=== PATIENT | male | born 1960 | race Caucasian/White ===

== ENCOUNTER 2023-09-21 17:47 | Emergency (ER) | payer MEDICAID, SELFPAY ==
[2023-09-21 17:53] VITALS: BP 166/83; PULSE 68; RESP 18; TEMP 37.2; O2SAT 96; BMI 19.8
--- NOTE | 2023-09-21 18:15 | CT_ITS ---
Patient: HERNANDEZ OWENS Facility:?[facility] Patient ID:?[id number] Site Patient ID:?[id number]. Site :?[id number] Study:?CT-Abdomen/Pelvis W/O-09/21/2023 6:43:11 PM Ordering Physician:CAROL Final Report: INDICATION: Right flank pain TECHNIQUE: Multiplanar CT examination of the abdomen and pelvis was performed without the use of intravenous contrast. COMPARISON: CT abdomen pelvis 02/18/2021. FINDINGS: Limited evaluation of the soft tissue organs without the use of intravenous contrast. Lower chest: Diffuse interlobular septal thickening. Mild cardiomegaly. Mild pulmonary vascular congestion. Small pleural effusions. No definite focal consolidation. Coronary arterial calcifications. No definite pneumothorax. Liver: Unremarkable. Gallbladder: Unremarkable. Biliary: Unremarkable. Pancreas: Within normal limits. Spleen: Tiny punctate calcified granulomas. Adrenal glands: Unremarkable. Renal/ureters/bladder: Markedly atrophic kidneys. Exophytic hypodensities, poorly characterized without the use of intravenous contrast, possibly simple renal cysts. No obstructive uropathy. No hydronephrosis or obstructive urinary calculi. The ureters appear unremarkable. The bladder is mildly thick walled diffusely. Pelvis: Unremarkable. Gastrointestinal: No bowel wall thickening or bowel obstruction. Normal appendix. Severe colonic diverticulosis without pericolonic fat stranding to suggest acute diverticulitis. Severe colonic stool burden. Vasculature: No aortic aneurysm. Severe atherosclerotic calcifications of the abdominal aorta and its branches. There is mild fusiform aneurysmal dilatation of the infrarenal abdominal aorta just proximal to the iliac bifurcation, measuring 2.3 cm. No significant atherosclerotic calcifications. Lymph nodes: No pathologic lymphadenopathy by size criteria. Peritoneum: No free fluid or pneumoperitoneum. No drainable fluid collections. Abdominal wall/soft tissues: Small right inguinal hernia containing several loops of nonobstructed small bowel. Bones: Chronic bilateral pars defects of L5 resulting in 11 mm of grade 1 anterolisthesis of L5 on S1 severe degenerative changes of the thoracolumbar spine. No acute osseous abnormalities. IMPRESSION: 1. Limited evaluation of the soft tissue organs without the use of intravenous contrast. 2. Mild cardiomegaly with mild pulmonary vascular congestion, interstitial edema and small pleural effusions bilaterally, which can be seen with decompensated congestive heart failure. 3. Dense coronary arterial calcifications, correlation with ASCVD evaluation is advised. 4. Small right inguinal hernia containing several loops of nonobstructed small bowel. No pneumatosis intestinalis or portal venous gas. 4. Markedly atrophic kidneys in keeping with patient`s given history of end- stage renal disease. 6. Severe colonic diverticulosis without evidence of acute diverticulitis. 7. Otherwise, no acute abdominopelvic pathology. Please note that all CT scans at this facility use dose modulation, iterative reconstruction, and/or weight-based dosing when appropriate to reduce radiation dose to as low as reasonably achievable. Dictated by Octavio Kenney MD @ 09/21/2023 7:45:33 PM Signed by:?Octavio Kenney MD @09/21/2023 7:45:33 PM (Electronic Signature)
--- NOTE | 2023-09-21 18:36 | ED_ITS ---
HPI - Fall General Date Seen: 09/21/23 Chief Complaint: Fall/Minor Trauma Stated Complaint: Fell on concrete, weak Time Seen by Provider: 09/21/23 17:50 Source: patient and seaming inspector Mode of arrival: ambulatory Limitations: language barrier History of Present Illness HPI Narrative: Patient is a 63-year-old male presenting to the emergency department for right flank pain. He is [place]an-speaking and seaming inspector was used. He has history of end-stage renal disease and produces some urine. Patient states he had dialysis today and after dialysis he is feeling dizzy and weak. He states this always occurs after dialysis and today it and seeing a different than normal. This is a symptoms though occurred while he was walking up steps into his house and he fell backwards onto the cement hitting his right flank. This happened about 10:30. The pain has persisted throughout the day so he was concerned and came to get it evaluated. Has not taking anything for pain. He states he no longer feels lightheaded or dizzy. Denies chest pain, shortness of breath, weakness, numbness, abdominal pain, fatigue. No history of kidney stones. No other concerns noted at this time. Related Data Home Medications Medication Instructions Recorded Confirmed amlodipine 5 mg tablet 5 mg PO BID 09/21/23 09/21/23 hydralazine 100 mg tablet 100 mg PO 3XD 09/21/23 09/21/23 Allergies Allergy/AdvReac Type Severity Reaction Status Date / Time No Known Drug Allergies Allergy Verified 09/21/23 18:00 Review of Systems Status of ROS: Reports: 10 or more systems reviewed and unremarkable except as noted in History and below PFSH PFSH Social History Smoking Status: Never smoker How often do you have a drink containing alcohol: never AUDIT-C Alcohol total score: 0 Non-prescribed substance use: denies use service: No Exam Narrative: Exam Narrative: Const: Well-nourished, Well-developed, in mild distress Eyes: PERRL, no conjunctival injection, and symmetrical lids HENT: Atraumatic external nose and ears. Moist mucous membranes. Neck: Symmetric, trachea midline, No thyromegaly. CVS: RRR, No murmurs or gallops. Peripheral pulses 2+ and equal in all extremities RESP: Unlabored respiratory effort. Clear to auscultation bilaterally. GI: Nontender/Nondistended, No rebound or guarding. MSK:Extremities w/o deformity, Normal Active ROM, right flank tenderness, no midline spine tenderness Skin: Warm, Dry. No rashes or lesions. Neuro: Normal Muscle tone, No focal neurological deficits. Psych: Awake, Alert, & Oriented x3. Appropriate mood and affect. Const: Vital Signs, click to edit/add: Vital Signs - 24 hr 09/21/23 17:53 09/21/23 20:32 Temperature 98.9 F Pulse Rate [Right Pulse Oximeter] 68 74 Respiratory Rate 18 18 Blood Pressure [Ri t Upper Arm] 166/83 H 168/86 H Pulse Oximetry 96 93 Oxygen Delivery Me thod Room Air Room Air Course Vital Signs Vital signs: Initial Vital Signs Temperature 98.9 F 09/21/23 17:53 Temperature Source Temporal Artery Scan 09/21/23 17:53 Pulse Rate 68 09/21/23 17:53 Pulse Rhythm Regular 09/21/23 17:53 Respiratory Rate 18 09/21/23 17:53 Blood Pressure 166/83 H 09/21/23 17:53 Blood Pressure Mean 110 H 09/21/23 17:53 Blood Pressure Position Sitting 09/21/23 17:53 Pulse Oximetry 96 09/21/23 17:53 Oxygen Delivery Method Room Air 09/21/23 17:53 Vital Signs Temperature 98.9 F 09/21/23 17:53 Pulse Rate 68 09/21/23 17:53 Respiratory Rate 18 09/21/23 17:53 Blood Pressure 166/83 H 09/21/23 17:53 Pulse Oximetry 96 09/21/23 17:53 Oxygen Delivery Method Room Air 09/21/23 17:53 Temperature 98.9 F 09/21/23 17:53 Pulse Rate 74 09/21/23 20:32 Respiratory Rate 18 09/21/23 20:32 Blood Pressure 168/86 H 09/21/23 20:32 Pulse Oximetry 93 09/21/23 20:32 Oxygen Delivery Method Room Air 09/21/23 20:32 Medications Administered Medications: Discontinued Medications Generic Name Dose Route Start Last Admin Trade Name Freq PRN Reason Stop Dose Admin Oxycodone HCl 5 mg 09/21/23 18:14 09/21/23 18:40 Oxycodone 5 Mg Tablet PO 09/21/23 18:15 5 mg ONCE ONE Administration MDM - Fall MDM Narrative Medical decision making narrative: Patient is a 63-year-old male presenting for right flank pain. Concern is occurred after fall seems most likely to be musculoskeletal in nature. I will do a CT scan to make sure there is no signs of kidney stone and to make sure there is no signs of bleeding. He is on dialysis but still produces urine so I am hesitant to use IV contrast at this time. Considering my concern for peritoneal or retroperitoneal bleeding is low is otherwise normal vital signs I am okay doing this without contrast. He has no midline tenderness and dedicated lumbar spine CT is not necessary. Since he did have lightheadedness and dizziness I will order an EKG, troponin, CBC, CMP. EKG shows no concerning abnormalities. Hemoglobin is 10.7 and I do not have previous hemoglobin to compare to but this seems unlikely to be the cause of his symptoms considering he always gets the lightheadedness and dizziness after dialysis. CMP shows a creatinine of 5.2 and a sodium of 131 no obvious concerning findings. Troponin did come back at 0.10 but he is a dialysis patient and this could be chronically elevated in him. We will recheck it. CT scan returned showing no concerning abnormalities that would be the cause of his flank pain. Repeat troponin was 0.11. This is functions same as the 0.10. of care troponin that was done earlier. This is likely a chronically elevated troponin from his end-stage renal disease. He is not having any symptoms right now and I do not believe he is having ACS. Patient be discharged home. Given oxycodone through [facility]. He agrees with this plan. Lab Data Labs: Lab Results 09/21/23 Range/Units 18:53 WBC 6.50 (4.50-11.00) K/uL RBC 3.49 L (4.30-5.90) m/uL Hgb 10.7 L (13.5-17.5) gm/dL Hct 33.8 L (37.0-53.0) % MCV 97 (80-100) fL MCH 31 (26-34) pg MCHC 32 (32-36) gm/dL RDW Coeff of [place] 13.8 (11.5-15.5) % Plt Count 133 L (140-440) K/uL Neut % (Auto) 79.8 H (42.0-72.0) % Lymph % (Auto) 8.8 L (20-44) % Clark % (Auto) 9.5 (0.0-11.0) % Eos % (Auto) 1.2 (0.0-7.0) % Baso % (Auto) 0.5 (0.0-3.0) % Neut # (Auto) 5.20 (1.7-7.0) K/uL Lymph # (Auto) 0.60 L (0.90-2.90) K/uL Clark # (Auto) 0.60 (0.00-0.90) K/UL Eos # (Auto) 0.08 (0.00-0.50) K/uL Baso # (Auto) 0.03 (0.00-0.30) K/uL Abs Immat Gran (auto) 0.01 (0.00-0.30) K/uL Imm/Tot Granulo (auto) 0.2 % Sodium 131 L (135-149) mmol/L Potassium 4.2 (3.6-5.1) mmol/L Chloride 92 L (96-114) mmol/L Carbon Dioxide 36 H (20-32) mmol/L Anion Gap 3 L (7-15) mEq/L BUN 21 (7-30) mg/dL Creatinine 5.2 H (0.5-1.5) mg/dL Estimated Creat Clear 14.02 Estimated GFR 12 ml/min Glucose 98 (60-115) mg/dL Calcium 8.9 (8.4-10.6) mg/dL Total Bilirubin 1.0 (0.1-1.5) mg/dL AST 23 (12-35) U/L ALT 12 (4-50) U/L Alkaline Phosphatase 124 (40-150) U/L Total Protein 7.0 (6.0-8.3) g/dL Albumin 4.0 (3.3-5.0) g/dL POC Troponin I 0.10 H (0.01-0.04) ng/ml Imaging Data CT scan abdomen and pelvis: Radiologist's impression: 1. Limited evaluation of the soft tissue organs without the use of intravenous contrast. 2. Mild cardiomegaly with mild pulmonary vascular congestion, interstitial edema and small pleural effusions bilaterally, which can be seen with decompensated congestive heart failure. 3. Dense coronary arterial calcifications, correlation with ASCVD evaluation is advised. 4. Small right inguinal hernia containing several loops of nonobstructed small bowel. No pneumatosis intestinalis or portal venous gas. 4. Markedly atrophic kidneys in keeping with patient`s given history of end- stage renal disease. 6. Severe colonic diverticulosis without evidence of acute diverticulitis. 7. Otherwise, no acute abdominopelvic pathology. Please note that all CT scans at this facility use dose modulation, iterative reconstruction, and/or weight-based dosing when appropriate to reduce radiation dose to as low as reasonably achievable. Dictated by Octavio Kenney MD @ 09/21/2023 7:45:33 PM ECG Data Attestation: I personally reviewed and interpreted this ECG as follows: Prior ECG tracings: not available for review Interpretation: Normal sinus rhythm with rate 65 beats per minute, there is some left ventricular hypertrophy with some possible ST elevations seen and lead V3 but this seems to be some early repolarization abnormality unlikely to be a STEMI. Discharge Plan Discharge Clinical Impression: Back pain Qualifiers: Back pain location: low back pain Chronicity: acute Back pain laterality: right Sciatica presence: without sciatica Qualified Code(s): M54.50 - Low back pain, unspecified Patient Disposition: Home, Self-Care Condition: Improved Instructions: Acute Low Back Pain (ED) Additional Instructions: Take Tylenol for pain. If that is not helping you can use the oxycodone. Just make sure your very careful when he take the oxycodone as it does increase your fall risk. He can make you dizzy. If he do developed any chest pain or shortness of breath return to the emergency department immediately. Prescriptions: No Action amlodipine 5 mg tablet 5 mg PO BID hydralazine 100 mg tablet 100 mg PO 3XD Follow Up/Referrals: Arpan Ponce MD [Primary Care Provider] - Stand Alone Forms: [email or web address] Info Instructions
[2023-09-21] MEDS: OXYCODONE 5 MG TABLET PO (18:40)
[2023-09-21 19:03] LABS: Basophils Absolute Auto 0.03 K/uL (0.00-0.30); Basophils Percent Auto 0.5 % (0.0-3.0); Eosinophils Absolute Auto 0.08 K/uL (0.00-0.50); Eosinophils Percent Auto 1.2 % (0.0-7.0); Hematocrit 33.8 % (37.0-53.0); Hemoglobin* 10.7 gm/dL (13.5-17.5); Immature Granulocytes Abs Auto 0.01 K/uL (0.00-0.30); Immature Granulocytes Pct Auto 0.2 %; Lymphocytes Percent Auto 8.8 % (20-44); Mean Corpuscular HGB Conc 32 gm/dL (32-36); Mean Corpuscular Hemoglobin 31 pg (26-34); Mean Corpuscular Volume 97 fL (80-100); Monocytes Percent Auto 9.5 % (0.0-11.0); Neutrophils Percent Auto 79.8 % (42.0-72.0); Platelet Count* 133 K/uL (140-440); RDW Coefficient of Variation % 13.8 % (11.5-15.5); Red Blood Count 3.49 m/uL (4.30-5.90)
[2023-09-21 19:14] LABS: Slide Review Reflex No
[2023-09-21 19:17] LABS: Chloride* 92 mmol/L (96-114)
[2023-09-21 19:18] LABS: Potassium* 4.2 mmol/L (3.6-5.1); Sodium* 131 mmol/L (135-149)
[2023-09-21 19:20] LABS: Anion Gap 3 mEq/L (7-15); Aspartate Amino Transferase* 23 U/L (12-35); Carbon Dioxide* 36 mmol/L (20-32); Creatinine* 5.2 mg/dL (0.5-1.5); Est. Creatinine Clearance* 14.02; Estimated Glomerular Filt Rate 12 ml/min
[2023-09-21 19:21] LABS: Alanine Aminotransferase* 12 U/L (4-50); Alkaline Phosphatase* 124 U/L (40-150); Blood Urea Nitrogen* 21 mg/dL (7-30); Calcium* 8.9 mg/dL (8.4-10.6); Glucose* 98 mg/dL (60-115)
[2023-09-21 20:32] VITALS: BP 168/86; PULSE 74; RESP 18; O2SAT 93
[2023-09-21 21:02] LABS: Troponin, Point-of-Care* 0.11 ng/ml (0.01-0.04)
== END 2023-09-21 21:21 | disposition home or self-care (01) ==
PROVIDERS: Emergency Provider Student in an Organized Health Care Education/Training Program; PCP Family Medicine
DX: M54.50 Low back pain, unspecified (principal)
CPT/HCPCS: 36415; 74176; 80053; 84484; 85025; 93005; 99283; 99285; A9270

== ENCOUNTER 2023-09-22 21:06 | Emergency (ER) | payer MEDICAID, SELFPAY ==
[2023-09-22 21:22] VITALS: BP 162/84; PULSE 70; RESP 18; TEMP 37.2; O2SAT 93; BMI 26.7
--- NOTE | 2023-09-22 21:37 | ED_ITS ---
HPI - SOB/Dyspnea General Time Seen by Provider: 21:37 <Nini Limon MD - Last Filed: 09/24/23 12:48> Date Seen: 09/22/23 <Nini Limon MD - Last Filed: 09/24/23 12:48> Chief Complaint: Shortness of Breath/Dyspnea <Nini Limon MD - Last Filed: 09/24/23 12:48> Stated Complaint: shortness of breath <Nini Limon MD - Last Filed: 09/24/23 12:48> Time Seen by Provider: 09/22/23 21:35 <Nini Limon MD - Last Filed: 09/24/23 12:48> Source: patient, RN notes reviewed and environmental service aide <Nini Limon MD - Last Filed: 09/24/23 12:48> Mode of arrival: wheelchair <Nini Limon MD - Last Filed: 09/24/23 12:48> Limitations: no limitations <Nini Limon MD - Last Filed: 09/24/23 12:48> History of Present Illness HPI Narrative: This 63-year-old male is seen with the aid of a relative who is interpreting for him at his request. He is coming in with complaint of shortness of breath. Really started probably about 3 hours ago. He could not lie flat at home, became significantly short of breath. He notes that movement or activity makes it worse. He denies any chest pain or palpitations. His appetite has been more diminished than usual. He has had some mild cough, this is possibly baseline. He has had no fevers. He denies any peripheral edema. He also reported some vomiting intermittently for 2 weeks to nursing staff, did have CT of his abdomen yesterday. He is due for dialysis tomorrow. He is in stage renal disease on dialysis at [facility] in [place]. He does not have a primary care provider. He was just in our ER yesterday and was evaluated with right flank pain after a fall after dialysis. He was reportedly weak and dizzy. Patient still does produce some urine. His O2 sats were 93-96% in the chart will heaves here yesterday. He did have a CT of his abdomen pelvis to ensure no intra-abdominal bleeding or renal pathology. There was no IV contrast. He had mild cardiomegaly with mild pulmonary vascular congestion, interstitial edema and small pleural effusions bilaterally which can be seen with decompensated congestive heart failure. Dense coronary arterial calcifications correlation with ASCVD evaluation is advised. Small right inguinal hernia containing several loops of nonobstructive small bowel. No pneumatosis intestinalis or portal venous gas. Markedly atrophic kidneys in keeping with patient's given history of end-stage renal disease. Severe colonic diverticulosis without evidence of acute diverticulitis. Otherwise no acute abdominopelvic pathology. Troponins were elevated yesterday, point of care done and was 0.10 with subsequent follow-up 0.11, felt to be from his end-stage renal disease. <Nini Limon MD - Last Filed: 09/24/23 12:48> MD elicited complaint: shortness of breath <Nini Limon MD - Last Filed: 09/24/23 12:48> Related Data Home oxygen amount: none <Nini Limon MD - Last Filed: 09/24/23 12:48> Home Medications: Home Medications Medication Instructions Recorded Confirmed amlodipine 5 mg tablet 5 mg PO BID 09/21/23 09/22/23 hydralazine 100 mg tablet 100 mg PO 3XD 09/21/23 09/22/23 <Nini Limon MD - Last Filed: 09/24/23 12:48> Allergies/Adverse Reactions: Allergies Allergy/AdvReac Type Severity Reaction Status Date / Time No Known Drug Allergies Allergy Verified 09/22/23 21:28 <Nini Limon MD - Last Filed: 09/24/23 12:48> Review of Systems Status of ROS: Reports: 6 or more systems reviewed and unremarkable except as noted in History and below <Nini Limon MD - Last Filed: 09/24/23 12:48> PFSH PFSH Social History: Social History Smoking Status: Former smoker Do you use any of these nicotine containing products: None Second hand tobacco smoke exposure: No How often do you have a drink containing alcohol: never AUDIT-C Alcohol total score: 0 Non-prescribed substance use: denies use service: No <Nini Limon MD - Last Filed: 09/24/23 12:48> Exam Const: Vital Signs, click to edit/add: Vital Signs - 24 hr 09/22/23 21:22 09/22/23 21:45 09/22/23 23:38 Temperature 99.0 F Pulse Rate 74 Pulse Rate [Pulse Oximeter] 70 Respiratory Rate 18 Blood Pressure Blood Pressure [Ri ght Upper Arm] 162/84 H Pulse Oximetry 93 93 89 Oxygen Delivery Me thod Room Air Room Air Oxygen Flow Rate 09/22/23 23:41 09/22/23 23:45 09/23/23 00:00 Temperature Pulse Rate 72 70 71 Pulse Rate [Pulse Oximeter] Respiratory Rate Blood Pressure 167/95 H Blood Pressure [Ri ght Upper Arm] Pulse Oximetry 96 97 97 Oxygen Delivery Me thod Nasal Cannula Nasal Cannula Nasal Cannula Oxygen Flow Rate 2 2 1 09/23/23 00:01 09/23/23 00:30 09/23/23 00:45 Temperature Pulse Rate 71 74 73 Pulse Rate [Pulse Oximeter] Respiratory Rate Blood Pressure 172/96 H Blood Pressure [Ri ght Upper Arm] Pulse Oximetry 94 97 97 Oxygen Delivery Me thod Nasal Cannula Nasal Cannula Nasal Cannula Oxygen Flow Rate 1 1 1 09/23/23 01:00 09/23/23 01:02 09/23/23 01:03 Temperature Pulse Rate 73 73 73 Pulse Rate [Pulse Oximeter] Respiratory Rate Blood Pressure 170/95 H Blood Pressure [Ri ght Upper Arm] Pulse Oximetry 96 96 95 Oxygen Delivery Me thod Nasal Cannula Nasal Cannula Room Air Oxygen Flow Rate 1 1 09/23/23 01:15 09/23/23 01:30 09/23/23 01:31 Temperature Pulse Rate 73 74 73 Pulse Rate [Pulse Oximeter] Respiratory Rate Blood Pressure 162/89 H Blood Pressure [Ri ght Upper Arm] Pulse Oximetry 95 88 86 L Oxygen Delivery Me thod Room Air Room Air Oxygen Flow Rate 09/23/23 01:45 09/23/23 02:00 09/23/23 02:02 Temperature Pulse Rate 71 73 75 Pulse Rate [Pulse Oximeter] Respiratory Rate Blood Pressure 162/96 H Blood Pressure [Ri ght Upper Arm] Pulse Oximetry 90 92 92 Oxygen Delivery Me thod Nasal Cannula Oxygen Flow Rate 1 09/23/23 02:15 09/23/23 02:30 09/23/23 02:32 Temperature Pulse Rate 73 74 73 Pulse Rate [Pulse Oximeter] Respiratory Rate Blood Pressure 163/98 H Blood Pressure [Ri ght Upper Arm] Pulse Oximetry 91 97 96 Oxygen Delivery Me thod Oxygen Flow Rate 09/23/23 02:33 09/23/23 02:45 09/23/23 03:00 Temperature Pulse Rate 74 73 72 Pulse Rate [Pulse Oximeter] Respiratory Rate Blood Pressure Blood Pressure [Ri ght Upper Arm] Pulse Oximetry 98 97 96 Oxygen Delivery Me thod Oxygen Flow Rate 09/23/23 03:02 09/23/23 03:15 09/23/23 03:30 Temperature Pulse Rate 74 72 73 Pulse Rate [Pulse Oximeter] Respiratory Rate Blood Pressure 173/105 H Blood Pressure [Ri ght Upper Arm] Pulse Oximetry 92 93 94 Oxygen Delivery Me thod Oxygen Flow Rate 09/23/23 03:32 09/23/23 03:33 09/23/23 03:45 Temperature Pulse Rate 75 75 73 Pulse Rate [Pulse Oximeter] Respiratory Rate Blood Pressure 165/97 H Blood Pressure [Ri ght Upper Arm] Pulse Oximetry 94 94 94 Oxygen Delivery Me thod Oxygen Flow Rate 09/23/23 04:00 09/23/23 04:01 09/23/23 04:15 Temperature Pulse Rate 75 75 75 Pulse Rate [Pulse Oximeter] Respiratory Rate Blood Pressure 173/101 H Blood Pressure [Ri ght Upper Arm] Pulse Oximetry 93 93 94 Oxygen Delivery Me thod Oxygen Flow Rate 09/23/23 04:30 09/23/23 04:32 09/23/23 04:45 Temperature Pulse Rate 72 74 75 Pulse Rate [Pulse Oximeter] Respiratory Rate Blood Pressure 169/107 H Blood Pressure [Ri ght Upper Arm] Pulse Oximetry 95 95 94 Oxygen Delivery Me thod Oxygen Flow Rate This 63-year-old male was brought back in a wheelchair, is alert, interactive, no apparent distress. He is resting comfortably in the bed in exam room to. He is not tachypneic. Seems to be able is speaking in full sentences. Sclera clear, conjugate gaze, pupils seem equal and round. Neck does not seem to have any to venous distension. Lungs with distant breath sounds but no wheezing or crackles heard. There is admittedly some poor effort with auscultation for breathing. CV is regular, has a harsh holosystolic murmur that certainly could be consistent with an aortic stenosis murmur, 3/5. Normal S1-S2. Abdomen is soft, nontender, nondistended, do not feel any masses. He has absolutely no lower extremity edema. Skin visualized without rash. <Nini Limon MD - Last Filed: 09/24/23 12:48> Vital Signs, click to edit/add: Vital Signs - 24 hr 09/22/23 21:22 09/22/23 21:45 09/22/23 23:38 Temperature 99.0 F Pulse Rate 74 Pulse Rate [Pulse Oximeter] 70 Respiratory Rate 18 Blood Pressure Blood Pressure [Ri ght Upper Arm] 162/84 H Pulse Oximetry 93 93 89 Oxygen Delivery Me thod Room Air Room Air Oxygen Flow Rate 09/22/23 23:41 09/22/23 23:45 09/23/23 00:00 Temperature Pulse Rate 72 70 71 Pulse Rate [Pulse Oximeter] Respiratory Rate Blood Pressure 167/95 H Blood Pressure [Ri ght Upper Arm] Pulse Oximetry 96 97 97 Oxygen Delivery Me thod Nasal Cannula Nasal Cannula Nasal Cannula Oxygen Flow Rate 2 2 1 09/23/23 00:01 09/23/23 00:30 09/23/23 00:45 Temperature Pulse Rate 71 74 73 Pulse Rate [Pulse Oximeter] Respiratory Rate Blood Pressure 172/96 H Blood Pressure [Ri ght Upper Arm] Pulse Oximetry 94 97 97 Oxygen Delivery Me thod Nasal Cannula Nasal Cannula Nasal Cannula Oxygen Flow Rate 1 1 1 09/23/23 01:00 09/23/23 01:02 09/23/23 01:03 Temperature Pulse Rate 73 73 73 Pulse Rate [Pulse Oximeter] Respiratory Rate Blood Pressure 170/95 H Blood Pressure [Ri ght Upper Arm] Pulse Oximetry 96 96 95 Oxygen Delivery Me thod Nasal Cannula Nasal Cannula Room Air Oxygen Flow Rate 1 1 09/23/23 01:15 09/23/23 01:30 09/23/23 01:31 Temperature Pulse Rate 73 74 73 Pulse Rate [Pulse Oximeter] Respiratory Rate Blood Pressure 162/89 H Blood Pressure [Ri ght Upper Arm] Pulse Oximetry 95 88 86 L Oxygen Delivery Me thod Room Air Room Air Oxygen Flow Rate 09/23/23 01:45 09/23/23 02:00 09/23/23 02:02 Temperature Pulse Rate 71 73 75 Pulse Rate [Pulse Oximeter] Respiratory Rate Blood Pressure 162/96 H Blood Pressure [Ri ght Upper Arm] Pulse Oximetry 90 92 92 Oxygen Delivery Me thod Nasal Cannula Oxygen Flow Rate 1 09/23/23 02:15 09/23/23 02:30 09/23/23 02:32 Temperature Pulse Rate 73 74 73 Pulse Rate [Pulse Oximeter] Respiratory Rate Blood Pressure 163/98 H Blood Pressure [Ri ght Upper Arm] Pulse Oximetry 91 97 96 Oxygen Delivery Me thod Oxygen Flow Rate 09/23/23 02:33 09/23/23 02:45 09/23/23 03:00 Temperature Pulse Rate 74 73 72 Pulse Rate [Pulse Oximeter] Respiratory Rate Blood Pressure Blood Pressure [Ri ght Upper Arm] Pulse Oximetry 98 97 96 Oxygen Delivery Me thod Oxygen Flow Rate 09/23/23 03:02 09/23/23 03:15 09/23/23 03:30 Temperature Pulse Rate 74 72 73 Pulse Rate [Pulse Oximeter] Respiratory Rate Blood Pressure 173/105 H Blood Pressure [Ri ght Upper Arm] Pulse Oximetry 92 93 94 Oxygen Delivery Me thod Oxygen Flow Rate 09/23/23 03:32 09/23/23 03:33 09/23/23 03:45 Temperature Pulse Rate 75 75 73 Pulse Rate [Pulse Oximeter] Respiratory Rate Blood Pressure 165/97 H Blood Pressure [Ri ght Upper Arm] Pulse Oximetry 94 94 94 Oxygen Delivery Me thod Oxygen Flow Rate 09/23/23 04:00 09/23/23 04:01 09/23/23 04:15 Temperature Pulse Rate 75 75 75 Pulse Rate [Pulse Oximeter] Respiratory Rate Blood Pressure 173/101 H Blood Pressure [Ri ght Upper Arm] Pulse Oximetry 93 93 94 Oxygen Delivery Me thod Oxygen Flow Rate 09/23/23 04:30 09/23/23 04:32 09/23/23 04:45 Temperature Pulse Rate 72 74 75 Pulse Rate [Pulse Oximeter] Respiratory Rate Blood Pressure 169/107 H Blood Pressure [Ri ght Upper Arm] Pulse Oximetry 95 95 94 Oxygen Delivery Me thod Oxygen Flow Rate <Bryon Gottlieb MD - Last Filed: 09/23/23 05:00> Documenting provider has reviewed patient's vital signs: yes <Nini Limon MD - Last Filed: 09/24/23 12:48> Course Course ED Course: Infectious etiology, cardiac etiology including CHF and ischemic heart disease need to be considered here. He certainly could have pneumonia or 1 of the respiratory viruses although he is not febrile at this time. Triple swab has been collected, will get a portable chest x-ray to start. It is notable that he had changes consistent with CHF on his abdomen pelvis CT yesterday which obviously did get the lower portion of the lungs. Will get full complement of labs. This is a dialysis patient and if requiring admission, cannot be hospitalized here. <Nini Limon MD - Last Filed: 09/24/23 12:48> Reevaluation(s) Time of Reevaluation #1: 23:42 <Nini Limon MD - Last Filed: 09/24/23 12:48> Reevaluation #1: Patient ambulated, O2 sats went into the 70s, he is more tachypneic. When getting back to his room, was at 89% after resting for a while, nursing staff did apply some nasal cannula oxygen. His proBNP is elevated in the 50,000 range, this patient has fluid overload and pulmonary congestion. With his harsh aortic murmur, do think he probably should have an echo somewhat soon. He is not going to be able to wait for outpatient dialysis tomorrow, will look for transfer to a hospital that has dialysis capacity. In the meantime, we will see if he has any response to Lasix 100 mg IV. <Nini Limon MD - Last Filed: 09/24/23 12:48> Time of Reevaluation #2: 00:16 <Bryon Gottlieb MD - Last Filed: 09/23/23 05:00> Reevaluation #2: Assumed care of patient changes stiff. Briefly, 63-year-old male dialysis dependent, last dialysis on Tuesday who developed shortness of breath a couple hours prior to coming the emergency department. On exam here tachypneic, oxygen desaturations down into the low 80s when walking but at rest saturating the mid low 90s. Crackles on lung exam. Chest x-ray demonstrates marked pulmonary edema, creatinine elevated as would be expected in dialysis patient, potassium is normal. Contacted multiple hospitals for transfer for urgent dialysis and, unable to transfer due to critical capacity throughout the [place]. Will watch the patient in the department overnight, Lasix IV given. Patient is due for dialysis in the morning, if respiratory status improves a little bit with Lasix, could possibly be discharged dialysis but currently not stable enough from respiratory standpoint to discharge for outpatient dialysis. <Bryon Gottlieb MD - Last Filed: 09/23/23 05:00> Time of Reevaluation #3: 03:46 <Bryon Gottlieb MD - Last Filed: 09/23/23 05:00> Reevaluation #3: The patient remains stable in the emergency department, says his breathing feels a little bit better. He is on 1 L oxygen for comfort but oxygen saturations are in the low 90s off oxygen. If remains stable, will trial off oxygen and potentially discharged to dialysis. If unable to ambulate without oxygen or becomes hypoxic at rest, will continue with plan for transfer. <Bryon Gottlieb MD - Last Filed: 09/23/23 05:00> Additional Reevaluation(s): 4:58 a.m. patient is feeling better and will be discharged to go to dialysis. From there fits breathing is good he can follow-up as an outpatient for echocardiogram, otherwise should have this done with his primary care doctor <Bryon Gottlieb MD - Last Filed: 09/23/23 05:00> Vital Signs Vital signs: Initial Vital Signs Temperature 99.0 F 09/22/23 21:22 Temperature Source Temporal Artery Scan 09/22/23 21:22 Pulse Rate 70 09/22/23 21:22 Respiratory Rate 18 09/22/23 21:22 Blood Pressure 162/84 H 09/22/23 21:22 Blood Pressure Mean 110 H 09/22/23 21:22 Blood Pressure Position Sitting 09/22/23 21:22 Pulse Oximetry 93 09/22/23 21:22 Oxygen Delivery Method Room Air 09/22/23 21:22 Vital Signs Temperature 99.0 F 09/22/23 21:22 Pulse Rate 70 09/22/23 21:22 Respiratory Rate 18 09/22/23 21:22 Blood Pressure 162/84 H 09/22/23 21:22 Pulse Oximetry 93 09/22/23 21:22 Oxygen Delivery Method Room Air 09/22/23 21:22 Temperature 99.0 F 09/22/23 21:22 Pulse Rate 71 09/23/23 05:03 Respiratory Rate 18 09/22/23 21:22 Blood Pressure 167/102 H 09/23/23 05:02 Pulse Oximetry 94 09/23/23 05:03 Oxygen Delivery Method Room Air 09/23/23 05:03 Oxygen Flow Rate 1 09/23/23 01:45 <Nini Limon MD - Last Filed: 09/24/23 12:48> Initial Vital Signs Temperature 99.0 F 09/22/23 21:22 Temperature Source Temporal Artery Scan 09/22/23 21:22 Pulse Rate 70 09/22/23 21:22 Respiratory Rate 18 09/22/23 21:22 Blood Pressure 162/84 H 09/22/23 21:22 Blood Pressure Mean 110 H 09/22/23 21:22 Blood Pressure Position Sitting 09/22/23 21:22 Pulse Oximetry 93 09/22/23 21:22 Oxygen Delivery Method Room Air 09/22/23 21:22 Vital Signs Temperature 99.0 F 09/22/23 21:22 Pulse Rate 70 09/22/23 21:22 Respiratory Rate 18 09/22/23 21:22 Blood Pressure 162/84 H 09/22/23 21:22 Pulse Oximetry 93 09/22/23 21:22 Oxygen Delivery Method Room Air 09/22/23 21:22 Temperature 99.0 F 09/22/23 21:22 Pulse Rate 71 09/23/23 05:03 Respiratory Rate 18 09/22/23 21:22 Blood Pressure 167/102 H 09/23/23 05:02 Pulse Oximetry 94 09/23/23 05:03 Oxygen Delivery Method Room Air 09/23/23 05:03 Oxygen Flow Rate 1 09/23/23 01:45 <Bryon Gottlieb MD - Last Filed: 09/23/23 05:00> Medications Administered Medications: Discontinued Medications Generic Name Dose Route Start Last Admin Trade Name Freq PRN Reason Stop Dose Admin Acetaminophen 650 mg 09/23/23 00:47 09/23/23 00:51 Acetaminophen 325 Mg Tablet PO 09/23/23 00:48 650 mg ONCE ONE Administration Furosemide 100 mg 09/22/23 23:49 09/23/23 00:19 Furosemide 10 Mg/Ml Inj IVP 09/22/23 23:50 100 mg ONCE ONE Administration <Nini Limon MD - Last Filed: 09/24/23 12:48> Discontinued Medications Generic Name Dose Route Start Last Admin Trade Name [place] PRN Reason Stop Dose Admin Acetaminophen 650 mg 09/23/23 00:47 09/23/23 00:51 Acetaminophen 325 Mg Tablet PO 09/23/23 00:48 650 mg ONCE ONE Administration Furosemide 100 mg 09/22/23 23:49 09/23/23 00:19 Furosemide 10 Mg/Ml Inj IVP 09/22/23 23:50 100 mg ONCE ONE Administration <Bryon Gottlieb MD - Last Filed: 09/23/23 05:00> MDM - SOB/Dyspnea Lab Data Attestation: I reviewed the patient's lab results. <Nini Limon MD - Last Filed: 09/24/23 12:48> Labs: Lab Results 09/22/23 09/22/23 09/22/23 Range/Units 21:40 21:55 22:35 WBC 9.39 (4.50-11.00) K/uL RBC 3.55 L (4.30-5.90) m/uL Hgb 11.1 L (13.5-17.5) gm/dL Hct 34.4 L (37.0-53.0) % MCV 97 (80-100) fL MCH 31 (26-34) pg MCHC 32 (32-36) gm/dL RDW Coeff of [place] 13.8 (11.5-15.5) % Plt Count 128 L (140-440) K/uL Neut % (Auto) 87.3 H (42.0-72.0) % Lymph % (Auto) 3.9 L (20-44) % [place] % (Auto) 7.9 (0.0-11.0) % Eos % (Auto) 0.5 (0.0-7.0) % Baso % (Auto) 0.3 (0.0-3.0) % Neut # (Auto) 8.20 H (1.7-7.0) K/uL Lymph # (Auto) 0.40 L (0.90-2.90) K/uL [place] # (Auto) 0.70 (0.00-0.90) K/UL Eos # (Auto) 0.05 (0.00-0.50) K/uL Baso # (Auto) 0.03 (0.00-0.30) K/uL Abs Immat Gran (auto) 0.01 (0.00-0.30) K/uL Imm/Tot Granulo (auto) 0.1 % Sodium 131 L (135-149) mmol/L Potassium 4.6 (3.6-5.1) mmol/L Chloride 92 L (96-114) mmol/L Carbon Dioxide 30 (20-32) mmol/L Anion Gap 9 (7-15) mEq/L BUN 40 H (7-30) mg/dL Creatinine 8.1 H (0.5-1.5) mg/dL Estimated Creat Clear 7.32 Estimated GFR 7 ml/min Glucose 85 (60-115) mg/dL Calcium 8.9 (8.4-10.6) mg/dL Phosphorus 5.9 H (2.5-4.5) mg/dL Total Bilirubin 1.5 (0.1-1.5) mg/dL AST 23 (12-35) U/L ALT 12 (4-50) U/L Alkaline Phosphatase 108 (40-150) U/L Troponin I 0.13 H* (0.01-0.04) ng/mL NT-Pro-B Natriuret Pep 49109 pg/mL Total Protein 7.1 (6.0-8.3) g/dL Albumin 4.1 (3.3-5.0) g/dL SARS-CoV-2 (PCR) Negative SARS-CoV-2 (Negative) Influenza Type A (PCR) Negative PCR FLU A (Negative) Influenza Type B (PCR) Negative PCR FLU B (Negative) RSV (PCR) Negative PCR RSV (Negative) Lab Acknowledgement Test Added <Nini Limon MD - Last Filed: 09/24/23 12:48> Lab Results 09/22/23 09/22/23 09/22/23 Range/Units 21:40 21:55 22:35 WBC 9.39 (4.50-11.00) K/uL RBC 3.55 L (4.30-5.90) m/uL Hgb 11.1 L (13.5-17.5) gm/dL Hct 34.4 L (37.0-53.0) % MCV 97 (80-100) fL MCH 31 (26-34) pg MCHC 32 (32-36) gm/dL RDW Coeff of [place] 13.8 (11.5-15.5) % Plt Count 128 L (140-440) K/uL Neut % (Auto) 87.3 H (42.0-72.0) % Lymph % (Auto) 3.9 L (20-44) % [place] % (Auto) 7.9 (0.0-11.0) % Eos % (Auto) 0.5 (0.0-7.0) % Baso % (Auto) 0.3 (0.0-3.0) % Neut # (Auto) 8.20 H (1.7-7.0) K/uL Lymph # (Auto) 0.40 L (0.90-2.90) K/uL [place] # (Auto) 0.70 (0.00-0.90) K/UL Eos # (Auto) 0.05 (0.00-0.50) K/uL Baso # (Auto) 0.03 (0.00-0.30) K/uL Abs Immat Gran (auto) 0.01 (0.00-0.30) K/uL Imm/Tot Granulo (auto) 0.1 % Sodium 131 L (135-149) mmol/L Potassium 4.6 (3.6-5.1) mmol/L Chloride 92 L (96-114) mmol/L Carbon Dioxide 30 (20-32) mmol/L Anion Gap 9 (7-15) mEq/L BUN 40 H (7-30) mg/dL Creatinine 8.1 H (0.5-1.5) mg/dL Estimated Creat Clear 7.32 Estimated GFR 7 ml/min Glucose 85 (60-115) mg/dL Calcium 8.9 (8.4-10.6) mg/dL Phosphorus 5.9 H (2.5-4.5) mg/dL Total Bilirubin 1.5 (0.1-1.5) mg/dL AST 23 (12-35) U/L ALT 12 (4-50) U/L Alkaline Phosphatase 108 (40-150) U/L Troponin I 0.13 H* (0.01-0.04) ng/mL NT-Pro-B Natriuret Pep 86892 pg/mL Total Protein 7.1 (6.0-8.3) g/dL Albumin 4.1 (3.3-5.0) g/dL SARS-CoV-2 (PCR) Negative SARS-CoV-2 (Negative) Influenza Type A (PCR) Negative PCR FLU A (Negative) Influenza Type B (PCR) Negative PCR FLU B (Negative) RSV (PCR) Negative PCR RSV (Negative) Lab Acknowledgement Test Added <Bryon Gottlieb MD - Last Filed: 09/23/23 05:00> Imaging Data Chest x-ray: Attestation: I have reviewed the pertinent imaging results. <Nini Horn MD - Last Filed: 09/24/23 12:48> My impression: Do believe I see changes consistent with pulmonary edema. Await Radiology over-read. <Nini Limon MD - Last Filed: 09/24/23 12:48> Radiologist's impression: Patient: HERNANDEZ OWENS Facility: [facility] Site Site : [id number] Study: XRay Chest 1V PORTABLE-09/22/2023 10:12:23 PM Ordering Physician: ENRICO Final Report: INDICATION: Shortness of breath TECHNIQUE: Chest radiograph 1 view COMPARISON: None FINDINGS: The sensitivity and specificity of the exam are moderately limited by the patient`s body habitus. Mediastinum: The mediastinum is normal in appearance. The cardiac silhouette is mildly enlarged but may be accentuated by the portable technique. Lung: Small lung volumes are present with indistinctness of the pulmonary vessels and perihilar airspace opacities are noted. Mild bibasilar atelectasis is seen. No sign of pleural effusion seen. No pneumothorax is identified. Bone and Soft tissue: Unremarkable for age. IMPRESSIONS: 1. Small lung volumes are present with indistinctness of the pulmonary vessels and perihilar airspace opacities are noted. Findings may be due to pulmonary edema. 2. The cardiac silhouette is mildly enlarged but may be accentuated by the portable technique. Dictated by Chemo Iqbal MD @ 09/22/2023 10:42:45 PM Dictated by: Chemo Iqbal MD @ 09/22/2023 22:42:51 (Electronic Signature) <Nini Limon MD - Last Filed: 09/24/23 12:48> ECG Data Attestation: I personally reviewed and interpreted this ECG as follows: (Normal sinus rhythm, 72 beats per minute. Voltage criteria for LVH. His LVH affects repolarization. QT corrected 475 milliseconds.) <Nini Limon MD - Last Filed: 09/24/23 12:48> ECG interpretation date: 09/22/23 <Nini Limon MD - Last Filed: 09/24/23 12:48> ECG interpretation time: 22:15 <Nini Limon MD - Last Filed: 09/24/23 12:48> Prior ECG tracings: available for review (His repolarization abnormality was more prominent on his EKG from yesterday.) <Nini Limon MD - Last Filed: 09/24/23 12:48> Discharge Plan Discharge Clinical Impression: Pulmonary edema with congestive heart failure, Heart murmur, End stage renal disease on dialysis <Nini Limon MD - Last Filed: 09/24/23 12:48> Patient Disposition: Home, Self-Care <Nini Limon MD - Last Filed: 09/24/23 12:48> Condition: Stable <Nini Limon MD - Last Filed: 09/24/23 12:48> Instructions: Heart Failure (ED), Heart Murmur (ED) <Nini Limon MD - Last Filed: 09/24/23 12:48> Additional Instructions: Go to dialysis. If your having shortness of breath after dialysis or need to go to the emergency department go to the [facility] either [facility], [facility], or [facility] where they have dialysis and Cardiology capabilities. Otherwise follow-up with your primary care doctor as soon as possible. <Nini Limon MD - Last Filed: 09/24/23 12:48> Activity Level: Activity as Tolerated <Nini Limon MD - Last Filed: 09/24/23 12:48> Activity as Tolerated <Bryon Gottlieb MD - Last Filed: 09/23/23 05:00> Prescriptions: No Action amlodipine 5 mg tablet 5 mg PO BID hydralazine 100 mg tablet 100 mg PO 3XD <Nini Limon MD - Last Filed: 09/24/23 12:48> Follow Up/Referrals: Arpan Ponce MD [Primary Care Provider] - <Nini Limon MD - Last Filed: 09/24/23 12:48> Stand Alone Forms: Pulmoc[facility] Info Instructions <Nini Limon MD - Last Filed: 09/24/23 12:48>
[2023-09-22 21:45] VITALS: O2SAT 93
--- NOTE | 2023-09-22 21:45 | XR_ITS ---
Patient: HERNANDEZ OWENS Facility:?[facility] Patient ID:?[id number] Site Patient ID:?[id number] Site :?1960 Study:?XRay-Chest 1V PORTABLE-09/22/2023 10:12:23 PM Ordering Physician:MISSY Final Report: INDICATION: Shortness of breath TECHNIQUE: Chest radiograph 1 view COMPARISON: None FINDINGS: The sensitivity and specificity of the exam are moderately limited by the patient`s body habitus. Mediastinum: The mediastinum is normal in appearance. The cardiac silhouette is mildly enlarged but may be accentuated by the portable technique. Lung: Small lung volumes are present with indistinctness of the pulmonary vessels and perihilar airspace opacities are noted. Mild bibasilar atelectasis is seen. No sign of pleural effusion seen. No pneumothorax is identified. Bone and Soft tissue: Unremarkable for age. IMPRESSIONS: 1. Small lung volumes are present with indistinctness of the pulmonary vessels and perihilar airspace opacities are noted. Findings may be due to pulmonary edema. 2. The cardiac silhouette is mildly enlarged but may be accentuated by the portable technique. Dictated by Chemo Iqbal MD @ 09/22/2023 10:42:45 PM Dictated by: Chemo Iqbal MD @ 09/22/2023 22:42:51 Signed by:?Chemo Iqbal MD @09/22/2023 10:42:51 PM (Electronic Signature)
[2023-09-22 22:00] LABS: Basophils Absolute Auto 0.03 K/uL (0.00-0.30); Basophils Percent Auto 0.3 % (0.0-3.0); Eosinophils Absolute Auto 0.05 K/uL (0.00-0.50); Eosinophils Percent Auto 0.5 % (0.0-7.0); Hematocrit 34.4 % (37.0-53.0); Hemoglobin* 11.1 gm/dL (13.5-17.5); Immature Granulocytes Abs Auto 0.01 K/uL (0.00-0.30); Immature Granulocytes Pct Auto 0.1 %; Lymphocytes Percent Auto 3.9 % (20-44); Mean Corpuscular HGB Conc 32 gm/dL (32-36); Mean Corpuscular Hemoglobin 31 pg (26-34); Mean Corpuscular Volume 97 fL (80-100); Monocytes Percent Auto 7.9 % (0.0-11.0); Neutrophils Percent Auto 87.3 % (42.0-72.0); Platelet Count* 128 K/uL (140-440); RDW Coefficient of Variation % 13.8 % (11.5-15.5); Red Blood Count 3.55 m/uL (4.30-5.90); White Blood Count* 9.39 K/uL (4.50-11.00)
[2023-09-22 22:02] LABS: Slide Review Reflex No
[2023-09-22 22:14] LABS: Albumin* 4.1 g/dL (3.3-5.0); Chloride* 92 mmol/L (96-114); Potassium* 4.6 mmol/L (3.6-5.1); Sodium* 131 mmol/L (135-149)
[2023-09-22 22:16] LABS: Creatinine* 8.1 mg/dL (0.5-1.5); Est. Creatinine Clearance* 7.32; Estimated Glomerular Filt Rate 7 ml/min
[2023-09-22 22:17] LABS: Alanine Aminotransferase* 12 U/L (4-50); Alkaline Phosphatase* 108 U/L (40-150); Anion Gap 9 mEq/L (7-15); Aspartate Amino Transferase* 23 U/L (12-35); Bilirubin Total* 1.5 mg/dL (0.1-1.5); Blood Urea Nitrogen* 40 mg/dL (7-30); Carbon Dioxide* 30 mmol/L (20-32); Glucose* 85 mg/dL (60-115); Phosphorus* 5.9 mg/dL (2.5-4.5); Total Protein* 7.1 g/dL (6.0-8.3)
[2023-09-22 22:18] LABS: Calcium* 8.9 mg/dL (8.4-10.6)
[2023-09-22 22:28] LABS: PCR FLU A Negative PCR FLU A (Negative); PCR FLU B Negative PCR FLU B (Negative); PCR RSV Negative PCR RSV (Negative); SARS PCR* Negative SARS-CoV-2 (Negative)
[2023-09-22 22:32] LABS: Troponin I* 0.13 ng/mL (0.01-0.04)
[2023-09-22 23:18] LABS: NT Pro B Type NatriureticPept* 58200 pg/mL
[2023-09-22 23:38] VITALS: PULSE 74; O2SAT 89
[2023-09-22 23:41] VITALS: BP 167/95; PULSE 72; O2SAT 96
[2023-09-22 23:45] VITALS: PULSE 70; O2SAT 97
[2023-09-23] VITALS (34 sets, daily range): BP systolic 162–173; BP diastolic 89–107; PULSE 70–75; O2SAT 86–98
[2023-09-23] MEDS: FUROSEMIDE 10 MG/ML inj 100 MG IVP (00:19)
[2023-09-23] MEDS: ACETAMINOPHEN 325 MG TABLET 650 MG PO (00:51)
--- NOTE | 2023-09-23 03:38 | ED.NURSE ---
Patient states that his breathing is feeling better.
== END 2023-09-23 05:23 | disposition home or self-care (01) ==
PROVIDERS: Family Medicine; Emergency Provider Family Medicine; PCP Family Medicine
DX: R60.0 Localized edema (principal); I50.9 Heart failure, unspecified; N18.6 End stage renal disease; Z99.2 Dependence on renal dialysis
CPT/HCPCS: 36415; 71045; 80053; 83880; 84100; 84484; 85025; 87631; 93005; 94761; 96374; 99284; 99285; A9270; J1940

== ENCOUNTER 2023-11-07 13:40 | Emergency (ER) | payer MEDICAID, SELFPAY ==
[2023-11-07] VITALS (29 sets, daily range): BP systolic 134–176; BP diastolic 79–98; PULSE 63–87; RESP 12–22; TEMP 36.7–38.4; O2SAT 90–98; BMI 23.1
--- NOTE | 2023-11-07 14:23 | US_ITS ---
Patient: HERNANDEZ OWENS Facility:?[facility] Patient ID:?[id number] Site Patient ID:?[id number]. Site :?1960 Study:?US-Abdomen Right limited-11/07/2023 3:26:14 PM Ordering Physician:Lewis Final Report: INDICATION: Right upper quadrant pain. TECHNIQUE: Ultrasound abdomen limited. Sonographic images of the right upper quadrant were obtained using marshall-scale and color Doppler images. COMPARISON: CT abdomen and pelvis 09/21/2023. FINDINGS: Liver: Homogeneous in echotexture. No focal lesion. Gallbladder: There is a 5 mm echogenic nonshadowing focus associated with the anterior wall of the gallbladder. No shadowing stones, wall thickening or pericholecystic fluid. Common bile duct: 2 mm. Pancreas: Visualized pancreas is homogeneous in echotexture. Right kidney: 6.7 cm in pole to pole length. Diffuse renal atrophy and multiple simple renal cysts appear unchanged. No hydronephrosis. Vasculature: Visualized abdominal aorta and IVC are normal. Right pleural effusion persists. IMPRESSION: 1. Subcentimeter adherent sludge ball, nonshadowing stone or polyp in the anterior gallbladder. 2. No biliary ductal dilatation. 3. Right renal atrophy with multiple simple cysts, as before. 4. Right pleural effusion persists. Dictated by Brian Frye MD @ 11/07/2023 3:43:11 PM Dictated by: Brian Frye MD @ 11/07/2023 15:43:24 Signed by:?Brian Frye MD @11/07/2023 3:43:24 PM (Electronic Signature)
--- NOTE | 2023-11-07 14:24 | XR_ITS ---
Patient: HERNANDEZ OWENS Facility:?[facility] Patient ID:?[id number] Site Patient ID:?[id number]. Site :?1960 Study:?XRay-Chest 2 VIEWS-11/07/2023 3:21:22 PM Ordering Physician:MAGDIEL Final Report: INDICATION: Coughing, vomiting. TECHNIQUE: Chest 2 views. COMPARISON: 09/22/2023. FINDINGS: Cardiovascular and mediastinum: Stable heart size and vasculature. Lungs and pleural spaces: Persistent interstitial predominant opacities. No sign of pleural effusion. No pneumothorax. Bones and soft tissues: No significant findings. IMPRESSION: Persistent interstitial predominant opacities, possibly pulmonary edema. No significant change when compared to prior study. Dictated by Cooper Bueno MD @ 11/07/2023 3:30:58 PM Signed by:?Cooper Bueno MD @11/07/2023 3:30:58 PM (Electronic Signature)
[2023-11-07 14:45] LABS: Strep A DNA Probe* NOT DETECTED (Not Detectd)
[2023-11-07 14:53] LABS: Lactate* 1.7 mmol/L (0.5-1.9)
[2023-11-07 14:54] LABS: Troponin, Point-of-Care* 0.48 ng/ml (0.01-0.04)
[2023-11-07 14:59] LABS: PCR FLU A Negative PCR FLU A (Negative); PCR FLU B Negative PCR FLU B (Negative); PCR RSV Negative PCR RSV (Negative); SARS PCR* Negative SARS-CoV-2 (Negative)
[2023-11-07 15:00] LABS: Basophils Absolute Auto 0.03 K/uL (0.00-0.30); Basophils Percent Auto 0.4 % (0.0-3.0); Hematocrit 32.1 % (37.0-53.0); Hemoglobin* 10.1 gm/dL (13.5-17.5); Immature Granulocytes Abs Auto 0.02 K/uL (0.00-0.30); Immature Granulocytes Pct Auto 0.3 %; Lymphocytes Percent Auto 3.6 % (20-44); Mean Corpuscular HGB Conc 32 gm/dL (32-36); Mean Corpuscular Hemoglobin 30 pg (26-34); Mean Corpuscular Volume 94 fL (80-100); Monocytes Percent Auto 10.4 % (0.0-11.0); Neutrophils Percent Auto 85.3 % (42.0-72.0); Platelet Count* 134 K/uL (140-440); RDW Coefficient of Variation % 14.6 % (11.5-15.5); White Blood Count* 7.71 K/uL (4.50-11.00)
[2023-11-07 15:04] LABS: Slide Review Reflex No
[2023-11-07 15:12] LABS: Chloride* 92 mmol/L (96-114); Sodium* 133 mmol/L (135-149)
[2023-11-07 15:13] LABS: Albumin* 4.1 g/dL (3.3-5.0)
[2023-11-07 15:16] LABS: Alanine Aminotransferase* 13 U/L (4-50); Alkaline Phosphatase* 95 U/L (40-150); Amylase* 101 U/L (18-89); Anion Gap 10 mEq/L (7-15); Aspartate Amino Transferase* 24 U/L (12-35); Bilirubin Direct* 0.7 mg/dL (0.0-0.5); Bilirubin Total* 1.4 mg/dL (0.1-1.5); Blood Urea Nitrogen* 25 mg/dL (7-30); Calcium* 8.6 mg/dL (8.4-10.6); Carbon Dioxide* 31 mmol/L (20-32); Creatinine* 5.9 mg/dL (0.5-1.5); Est. Creatinine Clearance* 11.26; Estimated Glomerular Filt Rate 10 ml/min; Glucose* 79 mg/dL (60-115); Lipase* 133 U/L (23-300); Total Protein* 7.3 g/dL (6.0-8.3)
[2023-11-07] MEDS: HYDROmorphone 0.5 mg/0.5 ml inj IVP (15:27)
[2023-11-07] MEDS: ACETAMINOPHEN 500 MG TABLET 1000 MG PO (15:27)
--- NOTE | 2023-11-07 15:28 | ED_ITS ---
HPI - Abdominal Pain General Date Seen: 11/07/23 <Rogerio Mckeon MD - Last Filed: 11/08/23 08:54> Chief Complaint: Abdominal Pain <Rogerio Mckeon MD - Last Filed: 11/08/23 08:54> Stated Complaint: Cough, vomiting <Rogerio Mckeon MD - Last Filed: 11/08/23 08:54> Time Seen by Provider: 11/07/23 14:10 <Rogerio Mckeon MD - Last Filed: 11/08/23 08:54> Source: patient and family <Rogerio Mckeon MD - Last Filed: 11/08/23 08:54> Mode of arrival: ambulatory <Rogerio Mckeon MD - Last Filed: 11/08/23 08:54> Limitations: no limitations <Rogerio Mckeon MD - Last Filed: 11/08/23 08:54> History of Present Illness HPI narrative: Cough and subsequent vomiting (from the cough) since this weekend. Dialysis this morning. Feels like he cannot catch his breath. He thought taking extra fluid off with dialysis this morning would help but it hasn't. 5/10 abdominal pain and nausea. Abdominal pain is in the center of the abdomen Patient is a very nice 63-year-old Scottish-speaking gentleman, who gets inter pretation by his family. They are presenting here with him. He describes abdominal pain for the last 2 days in a fever gets dialysis 3 times a week up and like fill. At [facility]. Today they noted he had a fever while he was getting the dialysis but they did anyway. This suggest that he should come to the ER .he does have some abdominal pain he describes more his epigastric right upper quadrant, his worsening with coughing. He has been coughing a lot more normally does not. He is also noted the fever. He is not coughing up any phlegm, denies any radiation discomfort, except when he coughs he has in his right lower quadrant worry is known hernia. No vomiting up any blood, no diarrhea, no history of any dysuria or frequency. No rashes noted. He is normally from here and also [place], he is brought in by family and friends. For evaluation <Rogerio Mckeon MD - Last Filed: 11/08/23 08:54> MD elicited complaint: abdominal pain <Rogerio Mckeon MD - Last Filed: 11/08/23 08:54> Associated symptoms: denies other symptoms <Rogerio Mckeon MD - Last Filed: 11/08/23 08:54> Related Data Home Medications: Home Medications Medication Instructions Recorded Confirmed amlodipine 5 mg tablet 5 mg PO BID 09/21/23 09/22/23 hydralazine 100 mg tablet 100 mg PO 3XD 09/21/23 09/22/23 <Rogerio Mckeon MD - Last Filed: 11/08/23 08:54> Allergies/Adverse Reactions: Allergies Allergy/AdvReac Type Severity Reaction Status Date / Time No Known Drug Allergies Allergy Verified 09/22/23 21:28 <Rogerio Mckeon MD - Last Filed: 11/08/23 08:54> Review of Systems Status of ROS Reports: 10 or more systems reviewed and unremarkable except as noted in History and below <Rogerio Mckeon MD - Last Filed: 11/08/23 08:54> [facility] Social History: Social History Smoking Status: Former smoker Do you use any of these nicotine containing products: None Second hand tobacco smoke exposure: No How often do you have a drink containing alcohol: never AUDIT-C Alcohol total score: 0 Non-prescribed substance use: denies use service: No <Rogerio Mckeon MD - Last Filed: 11/08/23 08:54> Exam Narrative: Exam Narrative: Patient is seen in room 5 he appears to be in no apparent distress although continually coughing his pupils are equal round reactive to light there is no scleral icterus or redness TMs are normal oropharynx is normal his neck is full range of motion, his chest has some crackles in both of his lung prado to mid scapula, left greater than right. Heart sounds reveal no murmurs, no S3-S4 his abdomen shows some [id number] tenderness in the right upper quadrant and epigastric region. There is no peritoneal signs, he has a large freely reducible right-sided inguinal hernia, I was able to reduce this back. Bowel sounds are normal and, no other tenderness is noted he moves all extremities independently well. No petechiae or rashes Tells me he still does make a little bit a urine. <Rogerio Mckeon MD - Last Filed: 11/08/23 08:54> Const: Vital Signs, click to edit/add: Vital Signs - 24 hr 11/07/23 14:05 11/07/23 15:10 11/07/23 15:19 Temperature 101.2 F H Pulse Rate 84 Pulse Rate [Pulse Oximeter] 87 Respiratory Rate 22 Blood Pressure 176/98 H Blood Pressure [Ri ght Upper Arm] 164/84 H Pulse Oximetry 91 97 90 Oxygen Delivery Me thod Room Air Oxygen Flow Rate 11/07/23 15:20 11/07/23 15:30 11/07/23 15:31 Temperature Pulse Rate 85 82 Pulse Rate [Pulse Oximeter] Respiratory Rate Blood Pressure Blood Pressure [Ri ght Upper Arm] Pulse Oximetry 92 97 96 Oxygen Delivery Me thod Nasal Cannula Nasal Cannula Oxygen Flow Rate 2 2 11/07/23 15:32 11/07/23 15:45 11/07/23 16:00 Temperature Pulse Rate 82 79 80 Pulse Rate [Pulse Oximeter] Respiratory Rate Blood Pressure 170/98 H Blood Pressure [Ri ght Upper Arm] Pulse Oximetry 96 97 96 Oxygen Delivery Me thod Nasal Cannula Nasal Cannula Nasal Cannula Oxygen Flow Rate 2 2 2 11/07/23 16:02 11/07/23 16:03 11/07/23 16:30 Temperature Pulse Rate 80 79 Pulse Rate [Pulse Oximeter] Respiratory Rate 16 Blood Pressure 163/98 H Blood Pressure [Ri ght Upper Arm] Pulse Oximetry 97 96 Oxygen Delivery Me thod Nasal Cannula Nasal Cannula Oxygen Flow Rate 2 2 11/07/23 16:32 11/07/23 16:59 11/07/23 17:02 Temperature 100.2 F H Pulse Rate 79 76 Pulse Rate [Pulse Oximeter] Respiratory Rate Blood Pressure 155/88 H 156/91 H Blood Pressure [Ri ght Upper Arm] Pulse Oximetry 97 97 Oxygen Delivery Me thod Nasal Cannula Nasal Cannula Oxygen Flow Rate 2 2 11/07/23 17:32 11/07/23 18:02 11/07/23 18:32 Temperature Pulse Rate 73 72 70 Pulse Rate [Pulse Oximeter] Respiratory Rate Blood Pressure 142/84 H 142/79 H 146/83 H Blood Pressure [Ri ght Upper Arm] Pulse Oximetry 94 98 96 Oxygen Delivery Me thod Nasal Cannula Nasal Cannula Nasal Cannula Oxygen Flow Rate 2 2 1 11/07/23 19:02 11/07/23 19:14 11/07/23 19:32 Temperature Pulse Rate 69 65 Pulse Rate [Pulse Oximeter] Respiratory Rate 12 Blood Pressure 134/80 136/81 Blood Pressure [Ri ght Upper Arm] Pulse Oximetry 97 97 Oxygen Delivery Me thod Nasal Cannula Oxygen Flow Rate 1 11/07/23 20:02 11/07/23 20:32 11/07/23 21:02 Temperature Pulse Rate 66 67 65 Pulse Rate [Pulse Oximeter] Respiratory Rate Blood Pressure 147/85 H 149/84 H 142/84 H Blood Pressure [Ri ght Upper Arm] Pulse Oximetry 97 94 98 Oxygen Delivery Me thod Nasal Cannula Nasal Cannula Nasal Cannula Oxygen Flow Rate 1 1 1 11/07/23 21:30 11/07/23 21:32 11/07/23 22:02 Temperature 98.1 F Pulse Rate 64 66 Pulse Rate [Pulse Oximeter] Respiratory Rate 20 Blood Pressure 147/87 H 149/93 H Blood Pressure [Ri ght Upper Arm] Pulse Oximetry 96 98 Oxygen Delivery Me thod Nasal Cannula Nasal Cannula Oxygen Flow Rate 1 1 11/07/23 22:32 11/07/23 23:02 Temperature Pulse Rate 65 63 Pulse Rate [Pulse Oximeter] Respiratory Rate Blood Pressure 144/88 H 137/94 H Blood Pressure [Ri ght Upper Arm] Pulse Oximetry 97 98 Oxygen Delivery Me thod Nasal Cannula Nasal Cannula Oxygen Flow Rate 1 1 <Rogerio Mckeon MD - Last Filed: 11/08/23 08:54> Vital Signs, click to edit/add: Vital Signs - 24 hr 11/07/23 14:05 11/07/23 15:10 11/07/23 15:19 Temperature 101.2 F H Pulse Rate 84 Pulse Rate [Pulse Oximeter] 87 Respiratory Rate 22 Blood Pressure 176/98 H Blood Pressure [Ri ght Upper Arm] 164/84 H Pulse Oximetry 91 97 90 Oxygen Delivery Me thod Room Air Oxygen Flow Rate 11/07/23 15:20 11/07/23 15:30 11/07/23 15:31 Temperature Pulse Rate 85 82 Pulse Rate [Pulse Oximeter] Respiratory Rate Blood Pressure Blood Pressure [Ri ght Upper Arm] Pulse Oximetry 92 97 96 Oxygen Delivery Me thod Nasal Cannula Nasal Cannula Oxygen Flow Rate 2 2 11/07/23 15:32 11/07/23 15:45 11/07/23 16:00 Temperature Pulse Rate 82 79 80 Pulse Rate [Pulse Oximeter] Respiratory Rate Blood Pressure 170/98 H Blood Pressure [Ri ght Upper Arm] Pulse Oximetry 96 97 96 Oxygen Delivery Me thod Nasal Cannula Nasal Cannula Nasal Cannula Oxygen Flow Rate 2 2 2 11/07/23 16:02 11/07/23 16:03 11/07/23 16:30 Temperature Pulse Rate 80 79 Pulse Rate [Pulse Oximeter] Respiratory Rate 16 Blood Pressure 163/98 H Blood Pressure [Ri ght Upper Arm] Pulse Oximetry 97 96 Oxygen Delivery Me thod Nasal Cannula Nasal Cannula Oxygen Flow Rate 2 2 11/07/23 16:32 11/07/23 16:59 11/07/23 17:02 Temperature 100.2 F H Pulse Rate 79 76 Pulse Rate [Pulse Oximeter] Respiratory Rate Blood Pressure 155/88 H 156/91 H Blood Pressure [Ri ght Upper Arm] Pulse Oximetry 97 97 Oxygen Delivery Me thod Nasal Cannula Nasal Cannula Oxygen Flow Rate 2 2 11/07/23 17:32 11/07/23 18:02 11/07/23 18:32 Temperature Pulse Rate 73 72 70 Pulse Rate [Pulse Oximeter] Respiratory Rate Blood Pressure 142/84 H 142/79 H 146/83 H Blood Pressure [Ri ght Upper Arm] Pulse Oximetry 94 98 96 Oxygen Delivery Me thod Nasal Cannula Nasal Cannula Nasal Cannula Oxygen Flow Rate 2 2 1 11/07/23 19:02 11/07/23 19:14 11/07/23 19:32 Temperature Pulse Rate 69 65 Pulse Rate [Pulse Oximeter] Respiratory Rate 12 Blood Pressure 134/80 136/81 Blood Pressure [Ri ght Upper Arm] Pulse Oximetry 97 97 Oxygen Delivery Me thod Nasal Cannula Oxygen Flow Rate 1 11/07/23 20:02 11/07/23 20:32 11/07/23 21:02 Temperature Pulse Rate 66 67 65 Pulse Rate [Pulse Oximeter] Respiratory Rate Blood Pressure 147/85 H 149/84 H 142/84 H Blood Pressure [Ri ght Upper Arm] Pulse Oximetry 97 94 98 Oxygen Delivery Me thod Nasal Cannula Nasal Cannula Nasal Cannula Oxygen Flow Rate 1 1 1 11/07/23 21:30 11/07/23 21:32 11/07/23 22:02 Temperature 98.1 F Pulse Rate 64 66 Pulse Rate [Pulse Oximeter] Respiratory Rate 20 Blood Pressure 147/87 H 149/93 H Blood Pressure [Ri ght Upper Arm] Pulse Oximetry 96 98 Oxygen Delivery Me thod Nasal Cannula Nasal Cannula Oxygen Flow Rate 1 1 11/07/23 22:32 11/07/23 23:02 Temperature Pulse Rate 65 63 Pulse Rate [Pulse Oximeter] Respiratory Rate Blood Pressure 144/88 H 137/94 H Blood Pressure [Ri ght Upper Arm] Pulse Oximetry 97 98 Oxygen Delivery Me thod Nasal Cannula Nasal Cannula Oxygen Flow Rate 1 1 <Ander Ortez MD - Last Filed: 11/07/23 23:22> Documenting provider has reviewed patient's vital signs: yes <Rogerio Mckeon MD - Last Filed: 11/08/23 08:54> Course Vital Signs Vital signs: Initial Vital Signs Temperature 101.2 F H 11/07/23 14:05 Temperature Source Temporal Artery Scan 11/07/23 14:05 Pulse Rate 87 11/07/23 14:05 Pulse Rhythm Regular 11/07/23 14:05 Respiratory Rate 22 11/07/23 14:05 Blood Pressure 164/84 H 11/07/23 14:05 Blood Pressure Mean 110 H 11/07/23 14:05 Blood Pressure Position Sitting 11/07/23 14:05 Pulse Oximetry 91 11/07/23 14:05 Oxygen Delivery Method Room Air 11/07/23 14:05 Vital Signs Temperature 101.2 F H 11/07/23 14:05 Pulse Rate 87 11/07/23 14:05 Respiratory Rate 22 11/07/23 14:05 Blood Pressure 164/84 H 11/07/23 14:05 Pulse Oximetry 91 11/07/23 14:05 Oxygen Delivery Method Room Air 11/07/23 14:05 Temperature 98.1 F 11/07/23 21:30 Pulse Rate 63 11/07/23 23:02 Respiratory Rate 20 11/07/23 21:30 Blood Pressure 137/94 H 11/07/23 23:02 Pulse Oximetry 98 11/07/23 23:02 Oxygen Delivery Method Nasal Cannula 11/07/23 23:02 Oxygen Flow Rate 1 11/07/23 23:02 <Rogerio Mckeon MD - Last Filed: 11/08/23 08:54> Initial Vital Signs Temperature 101.2 F H 11/07/23 14:05 Temperature Source Temporal Artery Scan 11/07/23 14:05 Pulse Rate 87 11/07/23 14:05 Pulse Rhythm Regular 11/07/23 14:05 Respiratory Rate 22 11/07/23 14:05 Blood Pressure 164/84 H 11/07/23 14:05 Blood Pressure Mean 110 H 11/07/23 14:05 Blood Pressure Position Sitting 11/07/23 14:05 Pulse Oximetry 91 11/07/23 14:05 Oxygen Delivery Method Room Air 11/07/23 14:05 Vital Signs Temperature 101.2 F H 11/07/23 14:05 Pulse Rate 87 11/07/23 14:05 Respiratory Rate 22 11/07/23 14:05 Blood Pressure 164/84 H 11/07/23 14:05 Pulse Oximetry 91 11/07/23 14:05 Oxygen Delivery Method Room Air 11/07/23 14:05 Temperature 98.1 F 11/07/23 21:30 Pulse Rate 63 11/07/23 23:02 Respiratory Rate 20 11/07/23 21:30 Blood Pressure 137/94 H 11/07/23 23:02 Pulse Oximetry 98 11/07/23 23:02 Oxygen Delivery Method Nasal Cannula 11/07/23 23:02 Oxygen Flow Rate 1 11/07/23 23:02 <Ander Ortez MD - Last Filed: 11/07/23 23:22> Medications Administered Medications: Discontinued Medications Generic Name Dose Route Start Last Admin Trade Name Camronq PRN Reason Stop Dose Admin Acetaminophen 1,000 mg 11/07/23 14:23 11/07/23 15:27 Acetaminophen 500 Mg Tablet PO 11/07/23 14:24 1,000 mg ONCE ONE Administration Aspirin 162 mg 11/08/23 09:00 11/07/23 17:40 Aspirin 81 Mg Tab.Chew PO 162 mg DAILY HEATHER Administration Azithromycin 500 mg 11/07/23 21:57 11/07/23 22:04 Azithromycin 250 Mg Tablet PO 11/07/23 21:58 500 mg ONCE ONE Administration Heparin Sodium (Porcine) 3,900 unit 11/07/23 18:10 11/07/23 18:41 Heparin 5,000 Unit/0.5 Ml Inj 60 unit/kg (3900 unit) 11/07/23 18:11 3,900 unit IVP Administration ONCE ONE Hydromorphone HCl 0.5 mg 11/07/23 14:23 11/07/23 15:27 Hydromorphone 0.5 Mg/0.5 Ml Inj IVP 11/07/23 14:24 0.5 mg ONCE ONE Administration Ceftriaxone Sodium 1 gm/ 100 mls @ 200 mls/hr 11/07/23 17:09 11/07/23 18:10 Sodium Chloride IVPB 11/07/23 17:10 Infused ONCE ONE Infusion Heparin Sodium/Dextrose 25,000 unit in 500 mls @ 0 mls/hr 11/07/23 18:15 11/07/23 18:41 Heparin IV 800 unit/hr .Q0M HEATHER 16 mls/hr Administration Protocol Per Protocol <Rogerio Mckeon MD - Last Filed: 11/08/23 08:54> Discontinued Medications Generic Name Dose Route Start Last Admin Trade Name Freq PRN Reason Stop Dose Admin Acetaminophen 1,000 mg 11/07/23 14:23 11/07/23 15:27 Acetaminophen 500 Mg Tablet PO 11/07/23 14:24 1,000 mg ONCE ONE Administration Aspirin 162 mg 11/08/23 09:00 11/07/23 17:40 Aspirin 81 Mg Tab.Chew PO 162 mg DAILY HEATHER Administration Azithromycin 500 mg 11/07/23 21:57 11/07/23 22:04 Azithromycin 250 Mg Tablet PO 11/07/23 21:58 500 mg ONCE ONE Administration Heparin Sodium (Porcine) 3,900 unit 11/07/23 18:10 11/07/23 18:41 Heparin 5,000 Unit/0.5 Ml Inj 60 unit/kg (3900 unit) 11/07/23 18:11 3,900 unit IVP Administration ONCE ONE Hydromorphone HCl 0.5 mg 11/07/23 14:23 11/07/23 15:27 Hydromorphone 0.5 Mg/0.5 Ml Inj IVP 11/07/23 14:24 0.5 mg ONCE ONE Administration Ceftriaxone Sodium 1 gm/ 100 mls @ 200 mls/hr 11/07/23 17:09 11/07/23 18:10 Sodium Chloride IVPB 11/07/23 17:10 Infused ONCE ONE Infusion Heparin Sodium/Dextrose 25,000 unit in 500 mls @ 0 mls/hr 11/07/23 18:15 11/07/23 18:41 Heparin IV 800 unit/hr .Q0M HEATHER 16 mls/hr Administration Protocol Per Protocol <Ander Ortez MD - Last Filed: 11/07/23 23:22> MDM - Abdominal Pain MDM Narrative Medical decision making narrative: Life-threatening differential diagnosis is include meningitis, encephalitis, pneumonia, intra-abdominal infection, bacteremia, other differential diagnosis include but are not limited to viral upper respiratory tract infection, strep, urinary tract infection, skin infection, osteomyelitis, influenza, fungal infections, diskitis, epidural abscess, or fever of unknown origin. I do believe this gentleman has some significant issues, we will do blood cultures CBC laboratory results which will undoubtedly be abnormal given his status as a dialysis patient, my quick read on his chest x-ray looks like there may be some increased markings in the left lower lobe, we will half to get over- read from Radiology as there is some chronic abnormality. His EKG also has abnormal, he is QRS widening, and left ventricular hypertrophy. He has no acute ST wave changes. Notable any appears to be in sinus rhythm with a ventricular rate 83 <Rogerio Mckeon MD - Last Filed: 11/08/23 08:54> Life-threatening differential diagnosis is include meningitis, encephalitis, pneumonia, intra-abdominal infection, bacteremia, other differential diagnosis include but are not limited to viral upper respiratory tract infection, strep, urinary tract infection, skin infection, osteomyelitis, influenza, fungal infections, diskitis, epidural abscess, or fever of unknown origin. I do believe this gentleman has some significant issues, we will do blood cultures CBC laboratory results which will undoubtedly be abnormal given his status as a dialysis patient, my quick read on his chest x-ray looks like there may be some increased markings in the left lower lobe, we will half to get over- read from Radiology as there is some chronic abnormality. His EKG also has abnormal, he is QRS widening, and left ventricular hypertrophy. He has no acute ST wave changes. Notable any appears to be in sinus rhythm with a ventricular rate 83 Neelima -- received this patient at handoff at change of shift pending non contrasted CT chest abdomen and pelvis. Has had a bump in troponins over time in emergency depart, essentially a non-STEMI and is anticipating likely need for transport partly due to this as well as history of renal failure needing dialysis. Also has had a fever. Has already been ordered for Rocephin initially for potential pneumonia. Did review CT imaging as noted. Radiology over-read as below Study:?CT-Chest/Abd/Pelvis WO-11/07/2023 5:25:43 PM Ordering Physician:MAGDIEL Final Report: INDICATION: Abdominal pain cough fever dialysis TECHNIQUE: CT chest, abdomen and pelvis acquired without contrast. COMPARISON: CT 09/21/2023 FINDINGS: CHEST: Cardiovascular structures: The heart is enlarged. Normal caliber thoracic aorta. Dense coronary artery calcification. Bilateral small pleural effusions. Mediastinum and myriam: Right hilar and infrahilar adenopathy which is contiguous with the masslike opacity in the right lower lobe measuring approximately 4.6 x 4 centimeters on Lungs and pleura: Nodular ground-glass opacity in the left upper lobe example 09/13, 09/19. There is bilateral diffuse subpleural reticular and ground-glass opacities that could represent fibrosis masslike right lower lobe consolidation. 1 centimeter irregular nodule medial right upper lobe 09/17 additionally there is nodular ground-glass opacities diffusely in the left upper and lower lobe which could be infectious/inflammatory there is areas of interlobular septal thickening Chest wall and axilla: No mass or adenopathy. ABDOMEN AND PELVIS: Liver: Unremarkable. Gallbladder and bile ducts: Unremarkable. Pancreas: Unremarkable. Spleen: Splenic granulomas. Adrenal glands: Unremarkable. Kidneys: Atrophic appearance of both kidneys. Multiple hypodense and slightly dense lesions in the kidneys are incompletely assessed. There is no hydronephrosis or renal calculi seen. GI tract: Abundant stool in the colon. There is diverticulosis normal appendix. Vascular structures: Dense atherosclerotic vascular calcification of the aorta Lymph nodes: Unremarkable. Miscellaneous: [id number] right inguinal hernia containing bowel without definite obstruction seen Pelvic Organs: Incomplete distention of the urinary bladder with diffuse wall thickening. Enlarged prostate gland Bones: Grade 2 anterolisthesis at L5-S1. Mild compression fractures at L2 unchanged severe compression fracture T7 age indeterminate IMPRESSION: 1. Right hilar and infrahilar adenopathy which is contiguous with masslike opaci ty in the right lower lobe measuring approximately 4.6 x 4 centimeters is suspicious for malignancy. Pulmonary consultation recommended 2. Additional nodular ground-glass opacity left upper lobe and right upper lobe irregular nodule. 3. There is diffuse nodular ground-glass opacities in left lung which could be infectious/inflammatory there is some interlobular septal thickening which may represent a component of pulmonary edema with small effusions. 4. Findings in the abdomen or pelvis. No acute moderate right inguinal hernia containing bowel without definite obstruction seen . 5. Wall thickening of the urinary bladder could be correlated for cystitis. 6. Kidneys. Diverticulosis. Atrophic Troponins have continue to elevate without significant EKG changes. Initially at 0.48 now at 1.22. With need for dialysis and findings in CT above including potential malignancy concerns, will be best cared for elsewhere. Dialysis not available at this facility. Did discuss these findings with Cardiology. Suspect more of a demand ischemia but does have significant cardiovascular disease. Mr. Padilla no longer has pain on re-evaluation. Recommendations are to continue heparin. He has already received aspirin. 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 EF at that time was low normal. Most recent echocardiogram noted anterolateral hypokinesis. He has been vitally well and stable. Anticipating transport to [place] pending bed availability. <Ander Ortez MD - Last Filed: 11/07/23 23:22> Medical Records Attestation: I reviewed the patient's medical records. <Rogerio Mckeon MD - Last Filed: 11/08/23 08:54> Lab Data Attestation: I reviewed the patient's lab results. <Rogerio Mckeon MD - Last Filed: 08:54> Labs: Lab Results 11/07/23 11/07/23 11/07/23 Range/Units 14:10 14:35 15:53 WBC 7.71 (4.50-11.00) K/uL RBC 3.40 L (4.30-5.90) m/uL Hgb 10.1 L (13.5-17.5) gm/dL Hct 32.1 L (37.0-53.0) % MCV 94 (80-100) fL MCH 30 (26-34) pg MCHC 32 (32-36) gm/dL RDW Coeff of [place] 14.6 (11.5-15.5) % Plt Count 134 L (140-440) K/uL Neut % (Auto) 85.3 H (42.0-72.0) % Lymph % (Auto) 3.6 L (20-44) % [place] % (Auto) 10.4 (0.0-11.0) % Eos % (Auto) 0.0 (0.0-7.0) % Baso % (Auto) 0.4 (0.0-3.0) % Neut # (Auto) 6.60 (1.7-7.0) K/uL Lymph # (Auto) 0.30 L (0.90-2.90) K/uL [place] # (Auto) 0.80 (0.00-0.90) K/UL Eos # (Auto) 0.00 (0.00-0.50) K/uL Baso # (Auto) 0.03 (0.00-0.30) K/uL Abs Immat Gran (auto) 0.02 (0.00-0.30) K/uL Imm/Tot Granulo (auto) 0.3 % INR 1.10 (0.91-1.10) APTT 35 H (23-33) Seconds Sodium 133 L (135-149) mmol/L Potassium 4.0 (3.6-5.1) mmol/L Chloride 92 L (96-114) mmol/L Carbon Dioxide 31 (20-32) mmol/L Anion Gap 10 (7-15) mEq/L BUN 25 (7-30) mg/dL Creatinine 5.9 H (0.5-1.5) mg/dL Estimated Creat Clear 11.26 Estimated GFR 10 ml/min Glucose 79 (60-115) mg/dL Lactate 1.7 (0.5-1.9) mmol/L Calcium 8.6 (8.4-10.6) mg/dL Total Bilirubin 1.4 (0.1-1.5) mg/dL Direct Bilirubin 0.7 H (0.0-0.5) mg/dL AST 24 (12-35) U/L ALT 13 (4-50) U/L Alkaline Phosphatase 95 (40-150) U/L NT-Pro-B Natriuret Pep [id number] pg/mL Total Protein 7.3 (6.0-8.3) g/dL Albumin 4.1 (3.3-5.0) g/dL Amylase 101 H (18-89) U/L Lipase 133 (23-300) U/L Procalcitonin 0.38 (<0.50) ng/mL SARS-CoV-2 (PCR) Negative SARS-CoV-2 (Negative) Influenza Type A (PCR) Negative PCR FLU A (Negative) Influenza Type B (PCR) Negative PCR FLU B (Negative) RSV (PCR) Negative PCR RSV (Negative) Group A Strep DNA NOT DETECTED (Not Detectd) POC Troponin I 0.48 H (0.01-0.04) ng/ml 11/07/23 11/07/23 Range/Units 16:29 20:26 WBC (4.50-11.00) K/uL RBC (4.30-5.90) m/uL Hgb (13.5-17.5) gm/dL Hct (37.0-53.0) % MCV (80-100) fL MCH (26-34) pg MCHC (32-36) gm/dL RDW Coeff of [place] (11.5-15.5) % Plt Count (140-440) K/uL Neut % (Auto) (42.0-72.0) % Lymph % (Auto) (20-44) % [place] % (Auto) (0.0-11.0) % Eos % (Auto) (0.0-7.0) % Baso % (Auto) (0.0-3.0) % Neut # (Auto) (1.7-7.0) K/uL Lymph # (Auto) (0.90-2.90) K/uL [place] # (Auto) (0.00-0.90) K/UL Eos # (Auto) (0.00-0.50) K/uL Baso # (Auto) (0.00-0.30) K/uL Abs Immat Gran (auto) (0.00-0.30) K/uL Imm/Tot Granulo (auto) % INR (0.91-1.10) APTT (23-33) Seconds Sodium (135-149) mmol/L Potassium (3.6-5.1) mmol/L Chloride (96-114) mmol/L Carbon Dioxide (20-32) mmol/L Anion Gap (7-15) mEq/L BUN (7-30) mg/dL Creatinine (0.5-1.5) mg/dL Estimated Creat Clear Estimated GFR ml/min Glucose (60-115) mg/dL Lactate (0.5-1.9) mmol/L Calcium (8.4-10.6) mg/dL Total Bilirubin (0.1-1.5) mg/dL Direct Bilirubin (0.0-0.5) mg/dL AST (12-35) U/L ALT (4-50) U/L Alkaline Phosphatase (40-150) U/L NT-Pro-B Natriuret Pep pg/mL Total Protein (6.0-8.3) g/dL Albumin (3.3-5.0) g/dL Amylase (18-89) U/L Lipase (23-300) U/L Procalcitonin (<0.50) ng/mL SARS-CoV-2 (PCR) (Negative) Influenza Type A (PCR) (Negative) Influenza Type B (PCR) (Negative) RSV (PCR) (Negative) Group A Strep DNA (Not Detectd) POC Troponin I 0.68 H 1.22 H (0.01-0.04) ng/ml <Rogerio Mckeon MD - Last Filed: 11/08/23 08:54> Lab Results 11/07/23 11/07/23 11/07/23 Range/Units 14:10 14:35 15:53 WBC 7.71 (4.50-11.00) K/uL RBC 3.40 L (4.30-5.90) m/uL Hgb 10.1 L (13.5-17.5) gm/dL Hct 32.1 L (37.0-53.0) % MCV 94 (80-100) fL MCH 30 (26-34) pg MCHC 32 (32-36) gm/dL RDW Coeff of [place] 14.6 (11.5-15.5) % Plt Count 134 L (140-440) K/uL Neut % (Auto) 85.3 H (42.0-72.0) % Lymph % (Auto) 3.6 L (20-44) % [place] % (Auto) 10.4 (0.0-11.0) % Eos % (Auto) 0.0 (0.0-7.0) % Baso % (Auto) 0.4 (0.0-3.0) % Neut # (Auto) 6.60 (1.7-7.0) K/uL Lymph # (Auto) 0.30 L (0.90-2.90) K/uL [place] # (Auto) 0.80 (0.00-0.90) K/UL Eos # (Auto) 0.00 (0.00-0.50) K/uL Baso # (Auto) 0.03 (0.00-0.30) K/uL Abs Immat Gran (auto) 0.02 (0.00-0.30) K/uL Imm/Tot Granulo (auto) 0.3 % INR 1.10 (0.91-1.10) APTT 35 H (23-33) Seconds Sodium 133 L (135-149) mmol/L Potassium 4.0 (3.6-5.1) mmol/L Chloride 92 L (96-114) mmol/L Carbon Dioxide 31 (20-32) mmol/L Anion Gap 10 (7-15) mEq/L BUN 25 (7-30) mg/dL Creatinine 5.9 H (0.5-1.5) mg/dL Estimated Creat Clear 11.26 Estimated GFR 10 ml/min Glucose 79 (60-115) mg/dL Lactate 1.7 (0.5-1.9) mmol/L Calcium 8.6 (8.4-10.6) mg/dL Total Bilirubin 1.4 (0.1-1.5) mg/dL Direct Bilirubin 0.7 H (0.0-0.5) mg/dL AST 24 (12-35) U/L ALT 13 (4-50) U/L Alkaline Phosphatase 95 (40-150) U/L NT-Pro-B Natriuret Pep 573005 pg/mL Total Protein 7.3 (6.0-8.3) g/dL Albumin 4.1 (3.3-5.0) g/dL Amylase 101 H (18-89) U/L Lipase 133 (23-300) U/L Procalcitonin 0.38 (<0.50) ng/mL SARS-CoV-2 (PCR) Negative SARS-CoV-2 (Negative) Influenza Type A (PCR) Negative PCR FLU A (Negative) Influenza Type B (PCR) Negative PCR FLU B (Negative) RSV (PCR) Negative PCR RSV (Negative) Group A Strep DNA NOT DETECTED (Not Detectd) POC Troponin I 0.48 H (0.01-0.04) ng/ml 11/07/23 11/07/23 Range/Units 16:29 20:26 WBC (4.50-11.00) K/uL RBC (4.30-5.90) m/uL Hgb (13.5-17.5) gm/dL Hct (37.0-53.0) % MCV (80-100) fL MCH (26-34) pg MCHC (32-36) gm/dL RDW Coeff of [place] (11.5-15.5) % Plt Count (140-440) K/uL Neut % (Auto) (42.0-72.0) % Lymph % (Auto) (20-44) % [place] % (Auto) (0.0-11.0) % Eos % (Auto) (0.0-7.0) % Baso % (Auto) (0.0-3.0) % Neut # (Auto) (1.7-7.0) K/uL Lymph # (Auto) (0.90-2.90) K/uL [place] # (Auto) (0.00-0.90) K/UL Eos # (Auto) (0.00-0.50) K/uL Baso # (Auto) (0.00-0.30) K/uL Abs Immat Gran (auto) (0.00-0.30) K/uL Imm/Tot Granulo (auto) % INR (0.91-1.10) APTT (23-33) Seconds Sodium (135-149) mmol/L Potassium (3.6-5.1) mmol/L Chloride (96-114) mmol/L Carbon Dioxide (20-32) mmol/L Anion Gap (7-15) mEq/L BUN (7-30) mg/dL Creatinine (0.5-1.5) mg/dL Estimated Creat Clear Estimated GFR ml/min Glucose (60-115) mg/dL Lactate (0.5-1.9) mmol/L Calcium (8.4-10.6) mg/dL Total Bilirubin (0.1-1.5) mg/dL Direct Bilirubin (0.0-0.5) mg/dL AST (12-35) U/L ALT (4-50) U/L Alkaline Phosphatase (40-150) U/L NT-Pro-B Natriuret Pep pg/mL Total Protein (6.0-8.3) g/dL Albumin (3.3-5.0) g/dL Amylase (18-89) U/L Lipase (23-300) U/L Procalcitonin (<0.50) ng/mL SARS-CoV-2 (PCR) (Negative) Influenza Type A (PCR) (Negative) Influenza Type B (PCR) (Negative) RSV (PCR) (Negative) Group A Strep DNA (Not Detectd) POC Troponin I 0.68 H 1.22 H (0.01-0.04) ng/ml <Ander Ortez MD - Last Filed: 11/07/23 23:22> ECG Data Attestation: I personally reviewed and interpreted this ECG as follows: <Rogerio Mckeon MD - Last Filed: 11/08/23 08:54> ECG interpretation date: 11/07/23 <Rogerio Mckeon MD - Last Filed: 11/08/23 08:54> Prior ECG tracings: available for review <Rogerio Mckeon MD - Last Filed: 11/08/23 08:54> Interpretation: EKG is abnormal, but not acutely given the previous EKG he is in normal sinus rhythm with left atrial enlargement, left anterior fascicular block, <Rogerio Mckeon MD - Last Filed: 11/08/23 08:54> Discharge Plan Discharge Clinical Impression: Pneumonia, Renal failure, Elevated troponin, Lung mass <Rogerio Mckeon MD - Last Filed: 11/08/23 08:54> Patient Disposition: [facility] <Rogerio Mckeon MD - Last Filed: 11/08/23 08:54> Condition: Stable <Rogerio Mckeon MD - Last Filed: 11/08/23 08:54> Prescriptions: No Action amlodipine 5 mg tablet 5 mg PO BID hydralazine 100 mg tablet 100 mg PO 3XD <Rogerio Mckeon MD - Last Filed: 11/08/23 08:54> Stand Alone Forms: MyHealth Info Instructions <Rogerio Mckeon MD - Last Filed: 11/08/23 08:54>
[2023-11-07 15:32] LABS: Procalcitonin* 0.38 ng/mL (<0.50)
--- NOTE | 2023-11-07 16:30 | CT_ITS ---
Patient: HERNANDEZ OWENS Facility:?[facility] Patient ID:?[id number] Site Patient ID:?[id number]. Site :?[id number] Study:?CT-Chest/Abd/Pelvis WO-11/07/2023 5:25:43 PM Ordering Physician:MAGDIEL Final Report: INDICATION: Abdominal pain cough fever dialysis TECHNIQUE: CT chest, abdomen and pelvis acquired without contrast. COMPARISON: CT 09/21/2023 FINDINGS: CHEST: Cardiovascular structures: The heart is enlarged. Normal caliber thoracic aorta. Dense coronary artery calcification. Bilateral small pleural effusions. Mediastinum and myriam: Right hilar and infrahilar adenopathy which is contiguous with the masslike opacity in the right lower lobe measuring approximately 4.6 x 4 centimeters on Lungs and pleura: Nodular ground-glass opacity in the left upper lobe example 09/13, 09/19. There is bilateral diffuse subpleural reticular and ground-glass opacities that could represent fibrosis masslike right lower lobe consolidation. 1 centimeter irregular nodule medial right upper lobe 09/17 additionally there is nodular ground-glass opacities diffusely in the left upper and lower lobe which could be infectious/inflammatory there is areas of interlobular septal thickening Chest wall and axilla: No mass or adenopathy. ABDOMEN AND PELVIS: Liver: Unremarkable. Gallbladder and bile ducts: Unremarkable. Pancreas: Unremarkable. Spleen: Splenic granulomas. Adrenal glands: Unremarkable. Kidneys: Atrophic appearance of both kidneys. Multiple hypodense and slightly dense lesions in the kidneys are incompletely assessed. There is no hydronephrosis or renal calculi seen. GI tract: Abundant stool in the colon. There is diverticulosis normal appendix. Vascular structures: Dense atherosclerotic vascular calcification of the aorta Lymph nodes: Unremarkable. Miscellaneous: [id number] right inguinal hernia containing bowel without definite obstruction seen Pelvic Organs: Incomplete distention of the urinary bladder with diffuse wall thickening. Enlarged prostate gland Bones: Grade 2 anterolisthesis at L5-S1. Mild compression fractures at L2 unchanged severe compression fracture T7 age indeterminate IMPRESSION: 1. Right hilar and infrahilar adenopathy which is contiguous with masslike opacity in the right lower lobe measuring approximately 4.6 x 4 centimeters is suspicious for malignancy. Pulmonary consultation recommended 2. Additional nodular ground-glass opacity left upper lobe and right upper lobe irregular nodule. 3. There is diffuse nodular ground-glass opacities in left lung which could be infectious/inflammatory there is some interlobular septal thickening which may represent a component of pulmonary edema with small effusions. 4. Findings in the abdomen or pelvis. No acute moderate right inguinal hernia containing bowel without definite obstruction seen . 5. Wall thickening of the urinary bladder could be correlated for cystitis. 6. Kidneys. Diverticulosis. Atrophic Please note that all CT scans at this facility use dose modulation, iterative reconstruction, and/or weight-based dosing when appropriate to reduce radiation dose to as low as reasonably achievable. Dictated by Jazz Lo MD @ 11/07/2023 6:46:06 PM Signed by:?Jazz Lo MD @11/07/2023 6:46:06 PM (Electronic Signature)
[2023-11-07 16:57] LABS: Troponin, Point-of-Care* 0.68 ng/ml (0.01-0.04)
[2023-11-07] MEDS: cefTRIAXone 1 GM in 0.9 % SODIUM CHLORIDE Mini-bag 100 ML IVPB (17:40)
[2023-11-07] MEDS: ASPIRIN 81 MG TAB.CHEW 162 MG PO (17:40)
[2023-11-07 18:06] LABS: NT Pro B Type NatriureticPept* 128000 pg/mL
[2023-11-07 18:35] LABS: Prothrombin Time 14.9 Seconds
[2023-11-07 18:36] LABS: Partial Thromboplastin Time* 35 Seconds (23-33)
[2023-11-07] MEDS: HEPARIN 25,000 UNIT/500 ML BAG 16 UNIT IV (18:41)
[2023-11-07] MEDS: HEPARIN 5,000 UNIT/0.5 ML INJ 3900 UNIT IVP (18:41)
[2023-11-07 20:37] LABS: Troponin, Point-of-Care* 1.22 ng/ml (0.01-0.04)
[2023-11-07] MEDS: AZITHROMYCIN 250 MG TABLET 500 MG PO (22:04)
== END 2023-11-07 23:32 | disposition short-term general hospital (02) ==
PROVIDERS: Emergency Provider Family Medicine
DX: J18.9 Pneumonia, unspecified organism (principal); N19 Unspecified kidney failure
CPT/HCPCS: 36415; 71046; 71250; 74176; 76705; 80048; 80076; 81001; 82150; 83605; 83690; 83880; 84145; 84484; 85025; 85027; 85610; 85730; 87040; 87631; 87651; 93005; 94761; 96365; 96375; 99285; 99291; A9270; J0696; J1170; J1644

== ENCOUNTER 2023-11-07 23:24 | Outpatient (CLI) | payer MEDICAID, SELFPAY | END 2023-11-07 23:25 | disposition home or self-care (01) | LOC: AMB 11-10 15:56 | PROVIDERS: Visit Provider Emergency Medicine | DX: J18.9 Pneumonia, unspecified organism (principal); N19 Unspecified kidney failure; R79.89 Other specified abnormal findings of blood chemistry; R91.8 Other nonspecific abnormal finding of lung field | CPT/HCPCS: A0425; A0434 ==